=== PATIENT | female | born 1965 | race Hispanic/Latino ===

== ENCOUNTER → 2019-01-16 | Outpatient (CLI) | payer BC | END | disposition home or self-care (01) | LOC: RAH 11:23 | PROVIDERS: ATTEND Family Medicine | DX: E04.1 Nontoxic single thyroid nodule (principal) | CPT/HCPCS: 76536 ==

== ENCOUNTER → 2021-10-27 | Outpatient (CLI) | payer OTHER | END | disposition home or self-care (01) | LOC: RAH 12:47 | PROVIDERS: ATTEND Obstetrics & Gynecology | DX: R92.8 Other abnormal and inconclusive findings on diagnostic imaging of breast (principal); N63.32 Unspecified lump in axillary tail of the left breast | CPT/HCPCS: 76641; 77066 ==

== ENCOUNTER 2025-02-21 06:27 | Day surgery (SDC) | payer OTHER ==
[2025-02-19 13:09] LABS: IMMATURE GRANULOCYTE ABSOLUTE 0.03 K/uL (0-1); NUCLEATED RED BLOOD CELLS 0.0 % (0.0-0.19); PLATELET COUNT (AUTO) 238 K/uL (130-400); RED BLOOD CELL COUNT(AUTO) 4.95 MIL/uL (4.00-5.50); RED CELL DISTRIBUTION WIDTH 13.1 % (11.0-15.5); WHITE BLOOD COUNT (AUTO) 10.2 K/uL (4.8-10.8)
[2025-02-19 13:19] LABS: CREATININE 0.7 mg/dL (0.5-1.0); GLOMERULAR FILTR. RATE CALC 100.0 mL/min (>90); GLUCOSE,RANDOM 80.0 mg/dL (70-105); SODIUM SERUM 140.0 mmol/L (136-145); UREA NITROGEN, BLOOD 11.0 mg/dL (7-18)
[2025-02-19 13:30] VITALS: BP 144/80; PULSE 64; RESP 12; TEMP 98.1
[2025-02-21] VITALS (15 sets, daily range): BP systolic 87–131; BP diastolic 48–76; PULSE 53–80; RESP 10–16; TEMP 97.3–97.8
[~2025-02-21] VITALS: Ht 167.6 cm; Wt 89.6 kg
[~2025-02-21 06:27] MED LIST: HORMONE PELLETS SUBCON; LEVO75CA6 PO; MVI PO; PRAV20TA59 PO; PROG200C11 PO; VITAMIN D PO
[2025-02-21] MEDS ORDERED: LIDOCAINE PF 100MG/5ML (2%) SYRINGE 5ML ONE (07:41)
[2025-02-21] MEDS ORDERED: MIDAZOLAM HCL 1 MG/ML 2ML VIAL ONE (07:42)
--- NOTE | 2025-02-21 09:05 | OP ---
Operative Note: DATE OF PROCEDURE: 02/21/25 SURGEON: JOLENE LYONS MD [employer]OB [employer]ST ESTIMATOR: [NONE] ANESTHESIA: [general] ANESTHESIOLOGIST/PROJECTOR BOOTH OPERATOR: [general] PREOPERATIVE DIAGNOSIS: [postmenopausal bleeding] POSTOPERATIVE DIAGNOSIS: [same] SYNOPSIS: [na] PROCEDURE: [hysteroscopy dilation and curettage with photographs ] ESTIMATED BLOOD LOSS: [minimal to none] INDICATIONS: [na] DESCRIPTION OF PROCEDURE: [The patient and her were visited in the holding area and the operation was stated in plain Mauritian, she had no additional questions and was ready to proceed. She was taken to the operating room and placed under general anesthesia, her bladder was drained and she was prepped and draped in the usual sterile fashion in the dorsal lithotomy position. A time out was taken to confirm her identity, the planned operation, her allergies and the fact that no antibiotics were administered. A weighted speculum was placed and the cervix was noted to have a small reyes, and it desce nded about one half down the vagina. The uterus sounded to 11 cm and was retroflexed, and the cervix was gradually dilated to about 8-0 mm and the hysteroscope with normal saline distension media was placed with finding of some fluffy tissue at the fundus near both cornu, both ostia were visualized, photos were taken and the hysteroscope was removed and all surfaces were curetted until gritty with a return of scant to moderate tissue and the hysteroscope was reintroduced, curettage was done and this was repeated until the interior of the uterus was clean. The single tooth tenaculum and weighted speculum were removed, there was very scanty bleeding at the conclusion of the procedure. The patient tolerated the procedure well, sponge, needle and lap counts were correct at the end of the case and the patient was awakened and taken to the recovery room in stable condition. Patient's was notified of the findings and the patient's stability. jolene lyons md ] JOLENE LYONS MD Feb 21, 2025 09:05
[2025-02-21] MEDS: LACTATED RINGERS 1000ML 1,000 ML IV ONE (09:16)
--- NOTE | 2025-02-21 09:50 | NUR ---
DRESSING: RAO PAD WITH SMALL AMOUNT OF SANGUINOUS DRAINAGE. CHANGED PER PATIENT.
--- NOTE | 2025-02-21 10:35 | NUR ---
dressing: alanna pad dry with no active bleeding noted.
== END 2025-02-21 10:35 | disposition home or self-care (01) ==
LOC: DAH 06:27
PROVIDERS: ATTEND Obstetrics & Gynecology
DX: N95.0 Postmenopausal bleeding (principal); R93.89 Abnormal findings on diagnostic imaging of other specified body structures; E78.00 Pure hypercholesterolemia, unspecified; E03.9 Hypothyroidism, unspecified; Z91.010 Allergy to peanuts; Z79.899 Other long term (current) drug therapy
CPT/HCPCS: 80048; 84703; 85025; 36415; 58558; A6260; J1100; J1885; A4663; J7030; A4351; A4355; J7120; J3010; J2003; J2250; J2704; J2405; J2371; A4649; A4215; A4213; A4335; A4222; A4221; A4216; A4223 ×2; J3490

== ENCOUNTER → 2025-04-11 | Outpatient (CLI) | payer OTHER | END | disposition home or self-care (01) | LOC: RAH 14:45 | PROVIDERS: ATTEND Obstetrics & Gynecology | DX: Z12.31 Encounter for screening mammogram for malignant neoplasm of breast (principal) | CPT/HCPCS: 77067 ==